=== PATIENT | female | born 1980 | race Caucasian/White ===

== ENCOUNTER 2021-11-12 17:18 | Emergency (ER) | payer BC ==
[2021-11-12 18:21] LABS: HEMOGLOBIN 15.5 gm/dl (12.3-15.3); RED BLOOD COUNT 4.77 M/UL (4.00-5.10); WHITE BLOOD COUNT 9.8 K/UL (4.5-11.0)
[2021-11-12 18:48] LABS: BUN/CREATININE RATIO 19 (0-10)
[2021-11-12] MEDS ORDERED: VALTREX 500 MG500 MG PO (19:38)
== END 2021-11-12 20:00 | disposition home or self-care (01) ==
LOC: ER1 17:18
PROVIDERS: Physician Assistant
DX: R07.89 Other chest pain (principal); B00.89 Other herpesviral infection; F41.9 Anxiety disorder, unspecified; Z86.16 Personal history of COVID-19; E11.9 Type 2 diabetes mellitus without complications; I10 Essential (primary) hypertension; F17.290 Nicotine dependence, other tobacco product, uncomplicated; Z88.2 Allergy status to sulfonamides
CPT/HCPCS: 71045; 80053; 82550; 82553; 83874; 84484; 85025; 85379; 99285